=== PATIENT | female | born 2000 | race African-American/Black ===

== ENCOUNTER 2025-02-13 08:10 | Emergency (ER) | payer MEDICAID ==
[~2025-02-13] VITALS: Ht 167.6 cm; Wt 66.0 kg
[2025-02-13 08:32] VITALS: O2SAT 100
[2025-02-13 09:07] LABS: CLARITY URINE TURBID (CLEAR); COLOR URINE DARK YELLOW (YELLOW); GLUCOSE URINE NEGATIVE (NEGATIVE); KETONES URINE TRACE (NEGATIVE); LEUKOCYTE ESTERASE URINE 2+ (NEGATIVE); NITRITE URINE NEGATIVE (NEGATIVE); OCCULT BLOOD URINE 2+ (NEGATIVE); PROTEIN URINE 2+ (NEGATIVE); SPECIFIC GRAVITY URINE 1.031 (1.005-1.030)
[2025-02-13 09:21] LABS: BACTERIA URINE 3+; SQUAMOUS EPITHELIAL CELL URINE 2+ /lpf (RARE/1+); WBC URINE TNTC /hpf (0-2); YEAST URINE NONE SEEN
[2025-02-13] MEDS ORDERED: PYR200 MT (09:41)
[2025-02-13] MEDS ORDERED: NITR-87 MT (09:41)
[2025-02-13] MEDS: LIDOCAINE HCL 1% 20ML VIAL INFIL ONE (09:44)
[2025-02-13] MEDS: CEFTRIAXONE SODIUM 500MG VIAL IM ONE (09:44)
[2025-02-13 09:49] VITALS: BP 138/92; PULSE 78; RESP 16; TEMP 36.7; O2SAT 100
== END 2025-02-13 09:49 | disposition home or self-care (01) ==
LOC: ER 08:53
DX: N39.0 Urinary tract infection, site not specified (principal); Z11.3 Encounter for screening for infections with a predominantly sexual mode of transmission
CPT/HCPCS: 81003; 87077; 87186; 99283

== ENCOUNTER 2025-05-26 00:48 | Emergency (ER) | payer MEDICAID ==
[~2025-05-26] VITALS: Ht 149.9 cm; Wt 77.4 kg
[~2025-05-26 00:48] MED LIST: NITR-87 MT; PYR200 MT
[2025-05-26 00:56] VITALS: O2SAT 98
[2025-05-26] MEDS ORDERED: FLUC150T46 MT (01:36)
[2025-05-26 01:46] VITALS: BP 137/94; PULSE 81; RESP 16; TEMP 36.7; O2SAT 98
== END 2025-05-26 01:47 | disposition home or self-care (01) ==
LOC: ER 00:48
DX: N76.0 Acute vaginitis (principal); Z79.899 Other long term (current) drug therapy
CPT/HCPCS: 99283